=== PATIENT | female | born 2000 | race Caucasian/White ===

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

== ENCOUNTER 2022-08-08 15:44 | Outpatient (CLI) | payer MEDICAID ==
--- NOTE | 2022-08-08 16:50 | XRAY Report ---
PROCEDURE: Knee 4 View RT INDICATIONS: R KNEE PX TECHNIQUE: 4 views of the right knee(s) were acquired. COMPARISON: None. FINDINGS: Bones: No fractures or dislocations. No suspicious bony lesions. Soft tissues: No joint effusion. No suspicious soft tissue calcifications. IMPRESSION: No acute fracture. No osseous lesion. If symptoms and/or clinical suspicion for patholog y continue, further assessment with repeat plain films, or advanced imaging (e.g., CT, MRI, or bone s can) is recommended for further assessment. Reviewed by: Amelia Delgado MD on 08/08/2022 4:49 PM PST Approved by: Amelia Delgado MD on 08/08/2022 4:49 PM PST Station ID: [id number]
== END 2022-08-08 15:45 | disposition home or self-care (01) ==
LOC: DI.N 15:44
PROVIDERS: ATTEND Physician Assistant
DX: M25.561 Pain in right knee (principal)

== ENCOUNTER 2022-11-09 15:03 | Outpatient (CLI) | payer MEDICAID | END 2022-11-09 15:04 | disposition home or self-care (01) | LOC: DI 15:03 | PROVIDERS: ATTEND Physician Assistant | DX: Z87.74 Personal history of (corrected) congenital malformations of heart and circulatory system (principal) | CPT/HCPCS: 93306 ==

== ENCOUNTER 2023-09-13 14:03 | Outpatient (CLI) | payer BC, MEDICAID ==
--- NOTE | 2023-09-13 16:57 | MRI Report ---
PROCEDURE: KNEE WO - RT INDICATIONS: RIGHT KNEE PAIN TECHNIQUE: Noncontrast sagittal PD fast spin echo and T2 fast spin echo with fat saturation, sagittal 3-D gradie nt sequence with fat saturation; coronal T1 spin echo and PD fast spin echo with fat saturation, and axial PD fast spin echo with fat saturation through the knee. COMPARISON: None. FINDINGS: Image quality: Excellent. Menisci: The medial and lateral menisci are intact. The meniscal root ligaments appear intact. Cruciate ligaments: The anterior and posterior cruciate ligaments appear intact. Medial structures: The medial collateral ligament appears intact. Visualized portions of the pes ans erinus tendons appear normal. No abnormal bursal fluid. Lateral structures: The lateral collateral ligament, long and short heads of the biceps femoris tend on appear intact. The popliteus tendon appears normal. Iliotibial band appears normal. Anterior structures: Mild distal quadriceps tendinosis at its superior patella insertion is seen. Mil d proximal patella tendinosis at its inferior patellar insertion is also noted. Patellar alignment is normal. No femoral trochlear dysplasia or ventral trochlear prominence. No edema in the infrapatel lar fat pad. Bones and cartilage: No bone marrow contusions or fractures. Low-grade chondromalacia involving medi al facet of patella cartilage is seen. The cartilage of the medial and lateral femorotibial compartme nts appears normal in thickness. Joint space: There is physiologic knee joint fluid. No Montoya's cyst. Normal appearing synovial pli are incidentally noted. IMPRESSION: 1. 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 No marrow edema. No fracture or dislocation. No significant joint effusion. 2. The cruciate ligaments are intact. 3. No evidence of focal meniscal tear. 4. Mild distal quadriceps tendinosis and proximal patella tendinosis. Reviewed by: Ignacio Hodges MD on 09/13/2023 4:55 PM PST Approved by: Ignacio Hodges MD on 09/13/2023 4:55 PM PST Station ID: [id number]
== END 2023-09-13 14:04 | disposition home or self-care (01) ==
LOC: DI 14:03
PROVIDERS: ATTEND Physician Assistant
DX: M22.41 Chondromalacia patellae, right knee (principal); M67.863 Other specified disorders of tendon, right knee

== ENCOUNTER 2023-10-01 08:00 | Outpatient (CLI) | payer BC ==
--- NOTE | 2023-10-01 20:31 | XRAY Report ---
PROCEDURE: Knee 4 View RT INDICATIONS: RIGHT KNEE PAIN TECHNIQUE: 4 views of the knee(s) were acquired. COMPARISON: None. FINDINGS: Bones: No fractures or dislocations. The joint spaces are well preserved. No patella subluxation. N o suspicious bony lesions. Soft tissues: No knee joint effusion. No suspicious soft tissue calcifications or masses. IMPRESSION: Unremarkable radiographic examination of right knee. Reviewed by: Ignacio Hayden MD on 10/01/2023 8:29 PM PST Approved by: gInacio Hayden MD on 10/01/2023 8:29 PM PST Station ID: [id number]
== END 2023-10-01 23:59 | disposition home or self-care (01) ==
LOC: DI.WOS 08:00
PROVIDERS: ATTEND Physician Assistant Surgical
DX: M76.51 Patellar tendinitis, right knee (principal)